=== PATIENT | male | born 1955 | race Caucasian/White ===

== ENCOUNTER 2016-06-30 22:10 | Emergency (ER) | payer OTHER ==
[2016-06-30] MEDS ORDERED: ONDANSETRON HCL 4 MG/2 ML VIAL ONE ×2 (22:25→22:48)
[2016-06-30] MEDS ORDERED: HYDROmorphone HCL 1 MG/ML SYR ONE (22:25)
[2016-06-30] MEDS ORDERED: LIDOCAINE VISCOUS 2% 15 ML UDC ONE (22:29)
[2016-06-30] MEDS ORDERED: MAG-AL PLUS XS SUSP 30 ML UDC ONE (22:29)
[2016-06-30] MEDS ORDERED: PANTOPRAZOLE 40 MG VIAL IV ONE (22:30)
[2016-06-30] MEDS ORDERED: FENTANYL 250 MCG/5 ML VIAL ONE (22:47)
[2016-06-30] MEDS ORDERED: FENTANYL 100 MCG/2 ML VIAL ONE (23:13)
[2016-06-30] MEDS ORDERED: KETAMINE HCL 500 MG/10 ML VIAL ONE (23:13)
[2016-06-30 23:27] LABS: BASOPHILS 0.2 % (0.0-2.0); HEMATOCRIT 48.2 % (42.0-54.0); HEMOGLOBIN 16.2 g/dL (14.0-18.0); LYMPHOCYTES 10.6 % (20.0-40.0); LYMPHOCYTES# 1.4 X 10^3uL (0.8-3.8); MEAN CELL VOLUME 95.5 fL (84.0-102.0); MEAN CORPUS. HGB CONCENTRATION 33.6 g/dL (32.0-36.0); MEAN CORPUSCULAR HEMOGLOBIN 32.1 pg (29.0-35.0); MEAN PLATELET VOLUME 8.6 fL (7.4-10.4); MONOCYTES 5.5 % (2.0-10.0); MONOCYTES# 0.7 X 10^3uL (0.2-1.0); NEUTROPHILS 83.7 % (54.0-75.0); NEUTROPHILS# 11.2 X 10^3uL (2.6-6.7); PLATELET COUNT 280 X 10^3uL (130-440); RED BLOOD COUNT 5.05 X 10^6uL (4.20-6.10); RED CELL DISTRIBUTION WIDTH 13.6 % (11.5-14.5); WHITE BLOOD COUNT 13.4 X 10^3uL (3.9-10.7)
[2016-06-30 23:42] LABS: A/G RATIO 1.6; ALBUMIN 5.1 g/dL (3.5-5.0); ALKALINE PHOSPHATASE 59 U/L (38-126); ALT 55 U/L (21-72); AST 70 U/L (17-59); BILIRUBIN, TOTAL 3.3 mg/dL (0.2-1.3); BLOOD UREA NITROGEN 27 mg/dL (9-20); CALCIUM 10.1 mg/dL (8.4-10.2); CHLORIDE 106 mmol/L (98-107); CREATININE 0.9 mg/dL (0.7-1.3); EST GLOMERULAR FILTRATION RATE > 60 mL/min; GLUCOSE 136 mg/dL (70-100); POTASSIUM 4.2 mmol/L (3.5-5.1); SODIUM 143 mmol/L (137-145); TOTAL PROTEIN 8.2 g/dL (6.3-8.2)
[2016-06-30] MEDS ORDERED: BUPIVACAINE HCL/PF 0.5% 30 ML VIAL ONE (23:44)
[2016-06-30] MEDS ORDERED: BACITRACIN 1 APP/PKT PKT TOPICAL ONE (23:59)
[2016-07-01] MEDS ORDERED: ONDANSETRON HCL 4 MG/2 ML VIAL ONE (00:18)
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
--- NOTE | 2016-07-03 09:47 | RADIOLOGY REPORT ---
HISTORY: Post reduction. COMPARISON: None. FINDINGS: 2 views of the tibia and fibula obtained. The overlying cast obscures fine bony detail. There is redemonstration of the tibial and fibular fractures with persistent distraction of the proximal tibial fracture and overriding, angulated and displaced by one half shaft width distal tibial fracture. The fibular fracture is overriding and mildly angulated. Soft tissue swelling is seen. There is normal mineralization. IMPRESSION: Improved alignment post reduction, as described above. Final Electronic Signature: This report was electronically signed by Caprice Johnson MD on 07/01/2016 12:36 AM. luis / JOAN
--- NOTE | 2016-07-03 09:48 | RADIOLOGY REPORT ---
HISTORY: Fracture. COMPARISON: None. FINDINGS: 2 views of the tibia and fibula obtained. The overlying splint obscures fine bony detail. There is a oblique fracture through the proximal tibial diaphysis with a second mildly comminuted fracture along the more distal tibial diaphysis. Overriding of the fracture fragments is seen with approximately one half shaft width displacement of the proximal and distal tibial fractures. In addition, there is a mildly comminuted fractures through the fibular diaphysis with greater than one shaft width distraction and overriding of the fracture fragments. There is diffuse soft tissue swelling. There is normal mineralization. IMPRESSION: Tibial and fibular fractures as described above. Final Electronic Signature: This report was electronically signed by Caprice Johnson MD on 06/30/2016 11:05 PM. luis / JOAN
== END 2016-07-01 00:42 | disposition short-term general hospital (02) ==
LOC: ER 22:10
DX: S82.231A Displaced oblique fracture of shaft of right tibia, initial encounter for closed fracture (principal); S89.101A Unspecified physeal fracture of lower end of right tibia, initial encounter for closed fracture; S89.301A Unspecified physeal fracture of lower end of right fibula, initial encounter for closed fracture; S81.812A Laceration without foreign body, left lower leg, initial encounter; R11.0 Nausea; X39.8XXA Other exposure to forces of nature, initial encounter; W17.81XA Fall down embankment (hill), initial encounter; Y92.828 Other wilderness area as the place of occurrence of the external cause; Y93.01 Activity, walking, marching and hiking; Z99.89 Dependence on other enabling machines and devices; Z74.3 Need for continuous supervision
CPT/HCPCS: 12031; 29515; 80053; 85025; 96361; 96365; 96374; 96375; 96376; 99285; A0425; A0427; J1170; J2405